=== PATIENT | female | born 1940 | race Caucasian/White ===

== ENCOUNTER → 2016-11-22 | Outpatient (CLI) | payer MEDICARE ==
--- NOTE | 2016-11-22 14:42 | MM ---
Reason for exam: additional evaluation requested from prior study. History: Patient is postmenopausal. 2 benign cyst aspirations of the left breast. Benign excisional biopsy of the left breast. Physical Findings: Nurse did not find any significant physical abnormalities on exam. MG 3D Diag Mammo W/Cad JERRY Bilateral CC and MLO view(s) were taken. The breast tissue is heterogeneously dense. This may lower the sensitivity of mammography. Finding: There are typically benign vascular, round calcifications in both breasts. Asymmetric breast tissue in the left breast. There is no discrete abnormality. These results were verbally communicated with the patient and result sheet given to the patient on 11/22/16. ASSESSMENT: Benign, BI-RAD 2 RECOMMENDATION: Routine screening mammogram of both breasts in 1 year. Manage patient on a clinical basis.
== END | disposition home or self-care (01) ==
LOC: RADMAMWWP 12:55
PROVIDERS: ATTEND Family Medicine
DX: N64.4 Mastodynia (principal)
CPT/HCPCS: G0204; G0279

== ENCOUNTER 2017-01-17 06:40 | Day surgery (SDC) | payer MEDICARE ==
[2017-01-11 16:03] VITALS: BMI 36.1
[~2017-01-17 06:40] MED LIST: ALPRAZolam 0.25 MG TAB PO PRN; ALPRAZolam 0.5 MG TAB PO PRN; ASPIRIN 325 MG TAB PO STA; ATORVASTATIN 80 MG TAB PO STA; NITROGLYCERIN SL TABS 0.4 MG TAB SUBLINGUAL PRN; SODIUM CHLORIDE 0.9% 1,000 ML in EMPTY BAG 1 BAG IV ONE
[2017-01-17 07:12] LABS: Glucose,Whole Blood 164 mg/dL (75-99)
[2017-01-17] MEDS ORDERED: MIDAZOLAM 2 MG/2 ML VIAL ONE ×2 (07:27→08:01)
[2017-01-17] MEDS ORDERED: LIDOCAINE 2% INJ 20 MG/ML (20 ML MDV) ONE (07:27)
[2017-01-17 07:33] VITALS: PULSE 89; TEMP 98.1
[2017-01-17] MEDS ORDERED: SODIUM CHLORIDE 0.9% 1,000 ML IV ONE (07:54)
[2017-01-17] MEDS ORDERED: LIDOCAINE 2% INJ 20 MG/ML SQ ONE (07:54)
[2017-01-17] MEDS ORDERED: MIDAZOLAM 2 MG/2 ML VIAL IV ONE ×2 (07:54→08:02)
[2017-01-17] MEDS ORDERED: IODIXANOL 320 MG/ML 100 ML INTRAARTER ONE (08:21)
[2017-01-17] MEDS ORDERED: RX INFO: IV CONTRAST WAS GIVEN 1 EACH MISC MISCELLANE PRN (08:30)
[2017-01-17] MEDS ORDERED: SODIUM CHLORIDE 0.9% 1,000 ML IV SCH (08:30)
--- NOTE | 2017-01-17 09:46 | CC ---
CARDIAC CATHETERIZATION REPORT DATE OF SERVICE: January 17, 2017. PERFORMING PHYSICIAN: Rei Garrett MD, garage manager. PROCEDURE PERFORMED: 1. Selective right and left coronary angiogram. 2. SVG to OM angiogram. 3. SVG to RCA angiogram. 4. Left internal mammary artery to LAD angiogram. 5. Left heart catheterization. 6. Left ventriculography. INDICATIONS: This is a pleasant 76-year-old female patient who is known to have severe triple-vessel coronary artery disease and she underwent CABG x3 with FITCH to LAD, SVG to OM, and SVG to RCA, was experiencing chest discomfort and underwent myocardial perfusion imaging stress test which showed an anterior ischemia. In view of that, she was brought today to undergo a heart catheterization. APPROACH: Right common femoral artery. COMPLICATION: None. LEVEL OF SEDATION: Moderate with sedation length of 33 minutes. PROCEDURE DESCRIPTION: After obtaining informed consent, the patient was brought to cardiac cath lab radiological technologist. The right common femoral artery was cannulated using micropuncture technique, the micropuncture wire passed easily. Then I placed a 6-[place] sheath in the right common femoral artery. Subsequently I did selective left and right coronary angiogram using JL4 and JR4 catheters. After that, I did SVG to RCA angiogram using the multipurpose catheter. The SVG to OM and FITCH to LAD angiogram was performed using JR4 catheters. After that I did left heart catheterization and left ventriculography using 6-[place] pigtail catheter. The procedure was completed without any complications. SELECTIVE CORONARY ANGIOGRAPHY: 1. The left main is angiographically normal, it bifurcates into the left circumflex and left anterior descending artery. 2. The circumflex is a moderate caliber vessel. It is a nondominant vessel. The left circumflex proximally appeared to have mild disease only and gives rise into the first and second OM branches, both have mild diffuse disease. The left circumflex in the midportion appeared to have mild disease only and gives rise into the third OM branch, which is 100% occluded and protected by an SVG. 3. The left anterior descending artery, proximal LAD has a lesion appeared to be in the range of 50%. The mid LAD has a lesion, appeared to be in the range of 80%. The LAD in the proximal portion gives rise into the 1st and 2nd diagonal branches and both have mild diffuse disease only. The LAD in the midportion has disease appeared to be in the range of 80%. This is just proximal to the anastomosis of the FITCH. 4. The RCA is completely occluded in the proximal portion. CORONARY BYPASS ANGIOGRAM: 1. The SVG to OM is patent. 2. The SVG to RCA is patent with lesion distal to the distal anastomosis, appeared to be in the range of 50% in the RCA. 3. The FITCH to LAD is patent with a small LAD after the FITCH anastomosis. HEMODYNAMICS: The left ventricular end-diastolic pressure was 12 mmHg and no gradient was identified across the aortic valve. Left ventriculography was performed in the MARTIN projection and using a power injection. The left ventricular systolic function is normal with EF around 55%. CONCLUSION: 1. Severe triple-vessel coronary artery disease. 2. Patent left internal mammary artery to left anterior descending with a small left anterior descending distal to the left internal mammary artery anastomosis. 3. Patent saphenous vein graft to obtuse marginal. 4. Patent saphenous vein graft to right coronary artery with lesion distal to the saphenous vein graft anastomosis, appeared to be in the range of 50%. 5. Normal left ventricular systolic function. POSTPROCEDURE MANAGEMENT: Maximize medical treatment and follow up with the patient. MMODL / IJN: [id number] /
--- NOTE | 2017-01-17 09:52 | LTR ---
January 17, [address] Colon: Ms. Evelin Chaparro was experiencing chest discomfort and underwent myocardial perfusion imaging stress test which revealed anterior ischemia. She underwent a heart catheterization which showed patency of all her bypasses. She underwent a heart catheterization which showed patency of all her bypasses. Maximized medical treatment is recommended at this point of time. I want to thank you for allowing me to participate in her care. MMMONCIA / SELVINN: [id number] /
[2017-01-17 10:24] VITALS: RESP 20
[2017-01-17 12:31] LABS: Glucose,Whole Blood 254 mg/dL (75-99)
[2017-01-17 15:07] VITALS: BP 122/62
== END 2017-01-17 14:50 | disposition home or self-care (01) ==
LOC: CATHCVL 06:40
PROVIDERS: ATTEND Internal Medicine Interventional Cardiology
DX: I25.110 Atherosclerotic heart disease of native coronary artery with unstable angina pectoris (principal); I25.84 Coronary atherosclerosis due to calcified coronary lesion; I25.82 Chronic total occlusion of coronary artery; E11.9 Type 2 diabetes mellitus without complications; I10 Essential (primary) hypertension; E78.5 Hyperlipidemia, unspecified; I48.2 Chronic atrial fibrillation; Z82.49 Family history of ischemic heart disease and other diseases of the circulatory system; Z79.82 Long term (current) use of aspirin; Z79.899 Other long term (current) drug therapy; Z79.84 Long term (current) use of oral hypoglycemic drugs; Z79.02 Long term (current) use of antithrombotics/antiplatelets; Z88.5 Allergy status to narcotic agent; Z86.711 Personal history of pulmonary embolism; Z82.3 Family history of stroke
CPT/HCPCS: 93459; C1894; C1769 ×2; C1760; J2001; J2250; Q9967

== ENCOUNTER → 2018-09-05 | Outpatient (CLI) | payer MEDICARE ==
--- NOTE | 2018-09-05 22:10 | BD ---
EXAMINATION TYPE: Axial Bone Density DATE OF EXAM: 09/05/2018 COMPARISON: NONE CLINICAL HISTORY: 78-year-old female with known osteoporosis Height: 4 FT 10 IN Weight: 196 FRAX RISK QUESTIONS: History of Fracture in Adulthood: YES Secondary Osteoporosis: RISK FACTORS HISTORY OF: History of Wrist Fracture: LT WRIST When: APPROX 25 YEARS AGO Family History of Osteoporosis: YES Postmenopausal woman: AGE 53 Lost more than 2 inches in height since high school: YES Poor Health: FAIR MEDICATIONS: Thyroid Medications: YES Which medication: LEVOTHYROXINE How Lon-4 YEARS Additional Medications: LEVOTHYROXINE,ACETAMINOPHEN, ELOQUIS/APIXABAN, LASIX, ISOSORBIDE, LIPITOR, JA NUMET, METOPROLOL, NITROSTAT, PAXIL, FERROUS SULFATE,ASPIRIN Additional History: EXAM MEASUREMENTS: Bone mineral densitometry was performed using the [employer] System. Bone mineral density as measured about the Lumbar spine is: ----- L1-L4(G/cm2): 1.285 T Score Values are as follows: ----- L2: -0.2 ----- L3: 1.8 ----- L4: 2.2 ----- L1-L4: 0.9 LAST BONE DENSITY DONE ABOUT 20 YEARS AGO Bone mineral density about the R hip (g/cm2): 0.769 Bone mineral density about the L hip (g/cm2): 0.752 T Score values are as follows: -----R Neck: -1.9 -----L Neck: -2.1 -----R Total: -1.6 -----L Total: -1.5 LAST BONE DENSITY DONE ABOUT 20 YEARS AGO IMPRESSION: Osteopenia (T Score between -2.5 and -1). There is slightly increased risk of fracture and the patient may be considered for treatment. Re-Screen 2-5 years. NOTE: T-SCORE=SD OF THE YOUNG ADULT MEAN.
--- NOTE | 2018-09-07 07:56 | MM ---
Reason for exam: screening (asymptomatic). Last mammogram was performed 1 year and 9 months ago. History: Patient is postmenopausal. 2 benign cyst aspirations of the left breast. Benign excisional biopsy of the left breast. Physical Findings: A clinical breast exam by your physician is recommended on an annual basis and results should be correlated with mammographic findings. MG 3D Screening Mammo W/Cad Bilateral CC and MLO view(s) were taken. Prior study comparison: November 22, 2016, bilateral MG 3d diag mammo w/cad JERRY. There are scattered fibroglandular densities. Extensive vascular calcifications. Scattered asymmetric densities are unchanged. No significant changes when compared with prior studies. ASSESSMENT: Benign, BI-RAD 2 RECOMMENDATION: Routine screening mammogram of both breasts in 1 year.
== END | disposition home or self-care (01) ==
LOC: RADMAMWWP 14:57
PROVIDERS: ATTEND Family Medicine
DX: Z12.31 Encounter for screening mammogram for malignant neoplasm of breast (principal); M85.851 Other specified disorders of bone density and structure, right thigh; M85.852 Other specified disorders of bone density and structure, left thigh
CPT/HCPCS: 77063; 77067; 77080

== ENCOUNTER → 2019-01-09 | Outpatient (CLI) | payer MEDICARE ==
--- NOTE | 2019-01-10 08:15 | CT ---
EXAMINATION TYPE: CT chest wo con DATE OF EXAM: 01/09/2019 COMPARISON: 01/09/2016 HISTORY: inscional cyst CT DLP: 395.5 mGycm, Automated exposure control for dose reduction was used. CONTRAST: Performed injected with 0 mL of Isovue 300. TECHNIQUE: Axial images were obtained at 5 mm thick sections. Reconstructed images are reviewed on [employer] computer in the coronal plane. FINDINGS: Portion of the thyroid visualized is normal. No suspicious lung nodules or focal infiltrates are present. There is a 1.2 cm lymph node in the superior mediastinum. Series 3 image 16. Additional smaller shott y lymph nodes are present. The ascending aorta diameter at the level of the main pulmonary artery is 3.8 cm. The main pulmonary artery diameter at the bifurcation is 3.0 cm. Moderate coronary artery calcification is present. Sternotomy wires are present from prior thoracic surgery. Multiple wire fractures are evident. 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 There is some prominence of the wires which extend towards the subcutaneous tissues especially noted inferiorly. The underlying soft tissues otherwise appear unrem arkable. Limited CT sections are obtained through the upper abdomen. Abdomen is essentially unremarkable. IMPRESSIONS: 1. 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 Some sternal wi res appear to extend towards subcutaneous tissues along the inferior sternum. Correlate with the palp able abnormality. 2. A superior enlarged mediastinal lymph node with additional small shotty lymphadenopathy within the mediastinum.
== END | disposition home or self-care (01) ==
LOC: RADCTMAIN 16:33
PROVIDERS: ATTEND Surgery
DX: R59.0 Localized enlarged lymph nodes (principal); Z91.013 Allergy to seafood; Z88.5 Allergy status to narcotic agent; Z91.041 Radiographic dye allergy status
CPT/HCPCS: 71250

== ENCOUNTER → 2019-01-18 | Outpatient (CLI) | payer MEDICARE ==
[2019-01-18 13:25] LABS: Basophils % (A) 0 %; Eosinophils # (A) 0.1 k/uL (0-0.7); Eosinophils % (A) 2 %; HCT 34.1 % (34.0-46.0); HGB 11.4 gm/dL (11.4-16.0); Lymphocytes # (A) 1.2 k/uL (1.0-4.8); Lymphocytes % (A) 23 %; MCH 31.1 pg (25.0-35.0); MCHC 33.5 g/dL (31.0-37.0); MCV 92.9 fL (80.0-100.0); Mean Platelet Volume 5.8; Monocytes # (A) 0.2 k/uL (0-1.0); Monocytes % (A) 4 %; Neutrophils # (A) 3.6 k/uL (1.3-7.7); Neutrophils % (A) 69 %; Platelet Count 307 k/uL (150-450); RBC 3.67 m/uL (3.80-5.40); RDW 13.5 % (11.5-15.5); WBC 5.3 k/uL (3.8-10.6)
[2019-01-18 13:32] LABS: Potassium 3.7 mmol/L (3.5-5.1)
[2019-01-18 13:33] LABS: Partial Thromboplastin Time 26.8 sec (22.0-30.0); Prothrombin Time 10.5 sec (9.0-12.0)
--- NOTE | 2019-01-18 13:44 | XR ---
EXAMINATION TYPE: XR chest 2V DATE OF EXAM: 01/18/2019 COMPARISON: NONE HISTORY: Preoperative examination. TECHNIQUE: Frontal and lateral views of the chest are obtained. FINDINGS: Slight eventration of the hemidiaphragms are incidentally noted. There is no focal air spac e opacity, pleural effusion, or pneumothorax seen. Post CABG changes are seen of the heart is enlarge d cardiomediastinal silhouette. The osseous structures are intact. Surgical clips in the upper abdo men are seen on the lateral view. Mild multilevel degenerative changes of the spine. IMPRESSION: No acute cardiopulmonary process.
== END ==
LOC: LABPAT 12:02
PROVIDERS: ATTEND Surgery
DX: Z01.818 Encounter for other preprocedural examination (principal); Z01.812 Encounter for preprocedural laboratory examination; R06.00 Dyspnea, unspecified; Z79.01 Long term (current) use of anticoagulants
CPT/HCPCS: 36415; 71046; 80051; 82565; 82947; 84520; 85025; 85610; 85730; 93005

== ENCOUNTER 2019-01-28 10:13 | Day surgery (SDC) | payer MEDICARE ==
[2019-01-21 13:03] VITALS: BMI 37.0
[~2019-01-28 10:13] MED LIST changes: -ALPRAZolam 0.25 MG TAB PO PRN; -ALPRAZolam 0.5 MG TAB PO PRN; -ASPIRIN 325 MG TAB PO STA; -ATORVASTATIN 80 MG TAB PO STA; +DEXAMETHASONE SOD PHOSPHATE 10 MG/ML 1 ML VIAL IV ONE; +LACTATED RINGERS 1,000 ML IV SCH; +LIDOCAINE 1% 20 ML VIAL (10MG/ML) FOR IV START INTRADERMA PRN; +MIDAZOLAM 2 MG/2 ML VIAL IV PRN; -NITROGLYCERIN SL TABS 0.4 MG TAB SUBLINGUAL PRN; +ONDANSETRON 4 MG/2 ML VIAL IVP ONE; -SODIUM CHLORIDE 0.9% 1,000 ML in EMPTY BAG 1 BAG IV ONE; +fentaNYL (PF) 50 MCG/ML 2 ML AMP IV PRN
[2019-01-28 11:09] LABS: Glucose,Whole Blood 129 mg/dL (75-99)
[2019-01-28] MEDS ORDERED: ESMOLOL 100 MG/10 ML VIAL ONE (14:16)
[2019-01-28] MEDS ORDERED: LIDOCAINE 1% INJ 10MG/ML (20 ML MDV) ONE (14:16)
[2019-01-28] MEDS ORDERED: NEOSTIGMINE 1 MG/ML 10 ML VIAL ONE (14:16)
[2019-01-28] MEDS ORDERED: PROPOFOL 10 MG/ML 20 ML VIAL IV ONE (14:16)
[2019-01-28] MEDS ORDERED: SUCCINYLCHOLINE CHLORIDE 100 MG/5 ML SYR IV ONE (14:16)
[2019-01-28] MEDS ORDERED: GLYCOPYRROLATE 0.2 MG/ML 2 ML VIAL ONE (14:16)
[2019-01-28] MEDS ORDERED: ROCURONIUM BROMIDE 10 MG/ML 10 ML VIAL IV ONE (14:16)
[2019-01-28] MEDS ORDERED: MIDAZOLAM 2 MG/2 ML VIAL ONE (14:16)
[2019-01-28] MEDS ORDERED: fentaNYL (PF) 50 MCG/ML 2 ML AMP ONE (14:16)
[2019-01-28] MEDS ORDERED: PHENYLEPHRINE-0.9% NACL SYG 1 MG/10 ML SYRINGE ONE (14:16)
[2019-01-28 16:04] VITALS: RESP 16; TEMP 97.3
--- NOTE | 2019-01-28 16:18 | XR ---
EXAMINATION TYPE: XR chest 1V portable DATE OF EXAM: 01/28/2019 COMPARISON: 01/14/1960 HISTORY: Post sternal wire removal. TECHNIQUE: Single frontal view of the chest is obtained. FINDINGS: Interval removal of sternotomy wires and replacement with figure of 8 sternotomy wire. Pos t CABG changes of the chest remain. Similar-appearing small left pleural effusion and left basilar ai rspace disease. Trace right pleural effusion and minimal pulmonary vascular congestion centrally. Car isha mediastinal silhouette is enlarged and rotated to the left. Diffuse osseous demineralization. IMPRESSION: Postsurgical changes detailed above with similar-appearing small left and trace right pl eural effusions as well as retrocardiac airspace disease.
[2019-01-28 16:25] LABS: Glucose,Whole Blood 196 mg/dL (75-99)
--- NOTE | 2019-01-28 17:16 | OP ---
OPERATIVE REPORT DATE OF SURGERY: 01/28/2019 SURGEON: Dr. Shiva Saunders. PRESCHOOL ASSISTANT: TAMARA Caro. PREOPERATIVE DIAGNOSIS: Chronic draining sinus, status post coronary artery bypass grafting in 2016. POSTOPERATIVE DIAGNOSIS: Multiple chronic sinus tracts sternotomy incision. PROCEDURE: Excision and debridement of sinus tracts as well as removal of 3 cable wires with application of wound V.A.C. dressing. INDICATION FOR SURGERY: The patient is a 78-year-old lady who is status post triple-vessel coronary artery bypass grafting as well as pulmonary vein isolation and exclusion of left atrial appendage performed on 12/28/2015. The patient over 3 years had a couple of chronic sinuses that are closing and opening and becoming very irritating to her. At this point we were proceeding with excision of sinus tracts and removal of cables. The risk was explained to her. She understood it and agreed to proceed. DESCRIPTION OF THE PROCEDURE: With the patient in supine position, general endotracheal anesthesia was induced uneventfully. The patient received 2 grams of cefazolin intravenously. The chest was prepped and draped using ChloraPrep. Ioban was used to cover the skin. There were 2 sinus openings; one closed and retracted and one seemed to be draining minimally, close to each other in the mid aspect of the sternotomy. I made an elliptical excision incorporating both openings of the sinus tracts and proceeding in the subcutaneous tissue. We had a small amount of tannish material that was sent for culture. We proceeded at basically following the sinus tracts. There were at least 3 of them as well as a fibrotic reaction along the cables. We eventually were able to remove 3 cables along with excision of all visible, potentially infected tract material. Thorough irrigation was performed. Hemostasis was achieved. I applied a packing initially and over it a Prevena dressing. Patient tolerated the procedure well and was extubated in the operating room. The patient will be followed in the wound clinic for formal VAC therapy. MMODL / IJN: [id number] / [facility]ITALBianca
[2019-01-28 17:48] VITALS: BP 142/86; PULSE 83
== END 2019-01-28 18:12 | disposition home health service (06) ==
LOC: OR 10:13
PROVIDERS: ATTEND Surgery
DX: T81.89XA Other complications of procedures, not elsewhere classified, initial encounter (principal); Z95.1 Presence of aortocoronary bypass graft; Z82.3 Family history of stroke; Z82.49 Family history of ischemic heart disease and other diseases of the circulatory system; F41.9 Anxiety disorder, unspecified; F32.9 Major depressive disorder, single episode, unspecified; I48.19 Other persistent atrial fibrillation; I25.10 Atherosclerotic heart disease of native coronary artery without angina pectoris; I10 Essential (primary) hypertension; E78.5 Hyperlipidemia, unspecified; E11.9 Type 2 diabetes mellitus without complications; M19.90 Unspecified osteoarthritis, unspecified site; Z86.711 Personal history of pulmonary embolism; E03.9 Hypothyroidism, unspecified; Z90.49 Acquired absence of other specified parts of digestive tract; Z79.01 Long term (current) use of anticoagulants; Z79.82 Long term (current) use of aspirin; Z79.890 Hormone replacement therapy; Z79.899 Other long term (current) drug therapy; Z88.5 Allergy status to narcotic agent; Z91.041 Radiographic dye allergy status
CPT/HCPCS: 87070; 87205; 87075; 87102; 71045; 20680; J2250; J1100; J2710; J0690; J2405; J2001; J3010; J2370; J0330; J2704